=== PATIENT | female | born 1950 | race Caucasian/White ===

== ENCOUNTER 2020-06-15 15:08 | Inpatient (IN) | payer OTHER ==
[~2020-06-15] VITALS: Ht 157.5 cm; Wt 83.5 kg
[~2020-06-15 15:08] MED LIST: ETODOLAC600 MG PO; INDERAL LA80 MG; NORFLEX100MG PO
== END 2020-06-29 16:30 | disposition home health service (06) | DRG 208 ==
LOC: ER 15:08 → MEDJ 19:48
PROVIDERS: ADMIT Specialist; ATTEND Specialist
PROC: 4A033R1 Measurement of Arterial Saturation, Peripheral, Percutaneous Approach (ICD-10-PCS; 2020-06-15)
PROC: 8E0ZXY6 Isolation (ICD-10-PCS; 2020-06-15)
PROC: 4A12X4Z Monitoring of Cardiac Electrical Activity, External Approach (ICD-10-PCS; 2020-06-15)
PROC: 3E0F7SF Introduction of Other Gas into Respiratory Tract, Via Natural or Artificial Opening (ICD-10-PCS; 2020-06-16)
PROC: 02HV33Z Insertion of Infusion Device into Superior Vena Cava, Percutaneous Approach (ICD-10-PCS; 2020-06-23)
PROC: 3E0436Z Introduction of Nutritional Substance into Central Vein, Percutaneous Approach (ICD-10-PCS; 2020-06-23)
PROC: 5A1945Z Respiratory Ventilation, 24-96 Consecutive Hours (ICD-10-PCS; principal; 2020-06-25)
DX: U07.1 COVID-19 (principal); J12.89 Other viral pneumonia; E46 Unspecified protein-calorie malnutrition; I10 Essential (primary) hypertension; E11.9 Type 2 diabetes mellitus without complications; Z79.4 Long term (current) use of insulin; R09.02 Hypoxemia; K59.09 Other constipation

== ENCOUNTER 2021-07-09 11:07 | Inpatient (IN) | payer OTHER ==
[~2021-07-09] VITALS: Ht 157.5 cm
[2021-07-09] MEDS ORDERED: COZAAR25 MG PO (11:21)
[2021-07-09] MEDS ORDERED: METFORMIN HCL1000 M2 PO (11:22)
[2021-07-09] MEDS ORDERED: PRILOSEC OTC20 MG PO (11:22)
--- NOTE | 2021-07-09 11:26 | NUR ---
SE RECIBE PTE ALERTA Y ORIENTADA LA CUAL REFIERE TENER TOS SECA Y SENTIRSE DEBIL.
--- NOTE | 2021-07-09 12:03 | NUR ---
PTE ALERTA,ESTABLE Y ORIENTADA,SE EDUCA SOBRE EL TRATAMIENTO QUE RECIBIRA EN EL HOSPITAL Y ESTA REFIERE ENTENDER.
== END 2021-07-21 16:30 | disposition home or self-care (01) | DRG 195 ==
LOC: ER 11:07 → MEDI 15:56 → MEDJ 15:56
PROVIDERS: ADMIT Specialist; ATTEND Specialist
PROC: 3E0F7GC Introduction of Other Therapeutic Substance into Respiratory Tract, Via Natural or Artificial Opening (ICD-10-PCS; principal; 2021-07-09)
PROC: 4A033R1 Measurement of Arterial Saturation, Peripheral, Percutaneous Approach (ICD-10-PCS; 2021-07-09)
PROC: BW2510Z Computerized Tomography (CT Scan) of Chest, Abdomen and Pelvis using Low Osmolar Contrast, Unenhanced and Enhanced (ICD-10-PCS; 2021-07-09)
PROC: 3E0F7SF Introduction of Other Gas into Respiratory Tract, Via Natural or Artificial Opening (ICD-10-PCS; 2021-07-09)
PROC: 8E0ZXY6 Isolation (ICD-10-PCS; 2021-07-10)
PROC: B24BZZZ Ultrasonography of Heart with Aorta (ICD-10-PCS; 2021-07-12)
PROC: 02HV33Z Insertion of Infusion Device into Superior Vena Cava, Percutaneous Approach (ICD-10-PCS; 2021-07-13)
DX: J15.7 Pneumonia due to Mycoplasma pneumoniae (principal); J15.212 Pneumonia due to Methicillin resistant Staphylococcus aureus; J45.909 Unspecified asthma, uncomplicated; Z20.822 Contact with and (suspected) exposure to COVID-19; Z86.16 Personal history of COVID-19; D72.828 Other elevated white blood cell count; I10 Essential (primary) hypertension; E11.9 Type 2 diabetes mellitus without complications; Z79.4 Long term (current) use of insulin